=== PATIENT | male | born 1990 | race Caucasian/White ===

== ENCOUNTER 2017-10-19 08:11 | Emergency (ER) | payer SELFPAY ==
[2017-10-19] MEDS ORDERED: Fluorescein Opthalmic Strip ONE (09:46)
[2017-10-19] MEDS ORDERED: Proparacaine 0.5% Opth 15 ML BOT ONE (09:46)
== END 2017-10-19 11:04 | disposition home or self-care (01) ==
LOC: ERS 08:11
DX: H10.9 Unspecified conjunctivitis (principal); F41.9 Anxiety disorder, unspecified; Z87.891 Personal history of nicotine dependence
CPT/HCPCS: 99283

== ENCOUNTER 2019-03-06 10:19 | Emergency (ER) | payer SELFPAY ==
[2019-03-06 11:29] LABS: #Basophils 0.1 thou/uL (0.0-0.2); #Eosinphils 0.3 thou/uL (0.0-0.7); #Lymphocytes 1.5 thou/uL (1.20-3.40); #Monocytes 0.4 thou/uL (0.11-0.59); #Neutrophils 4.4 thou/uL (1.40-6.50); %Basophils 0.8 % (0.0-1.0); %Eosinophils 3.9 % (0.0-10.0); %Lymphocytes 22.4 % (21.0-51.0); %Monocytes 6.5 % (0.0-10.0); %Neutrophils 66.4 % (42.0-75.0); Hemoglobin 14.2 g/dL (14.0-18.0); Mean Corpuscular HGB CONC 32.3 g/dL (32.0-36.0); Mean Corpuscular Hemoglobin 29.5 pg (27.0-31.0); Mean Corpuscular Volume 91.2 fL (78.0-98.0); Mean Platelet Volume 8.5 fL (7.4-10.4); Platelet Count 228 thou/uL (130-400); RBC Distribution Width 13.3 % (11.5-14.5); Red Blood Cell (RBC) Count 4.83 mill/uL (4.70-6.10); White Blood Cell (WBC) Count 6.7 thou/uL (4.8-10.8)
[2019-03-06 11:49] LABS: ALT (SGPT) 27 U/L (8-55); AST (SGOT) 24 U/L (5-34); Albumin 4.3 g/dL (3.5-5.0); Alkaline Phosphatase 128 U/L (40-150); Anion Gap 9 mmol/L (10-20); BUN (Urea Nitrogen) 14 mg/dL (8.9-20.6); Bilirubin, Total 0.7 mg/dL (0.2-1.2); Calc. Creatinine Clearance 0 mL/min (70-130); Calcium 9.8 mg/dL (7.8-10.44); Carbon Dioxide 30 mmol/L (22-29); Chloride 107 mmol/L (98-107); Estimated GFR-MDRD Greater than 90; Globulin 2.8 g/dL (2.4-3.5); Glucose 88 mg/dL (70-105); Potassium 3.8 mmol/L (3.5-5.1); Protein, Total 7.1 g/dL (6.0-8.3); Sodium 142 mmol/L (136-145)
[2019-03-06 12:42] LABS: Troponin I Less than 0.010 ng/mL (< 0.028)
[2019-03-06 13:04] LABS: Bilirubin Negative (Negative); Blood, Urine Negative (Negative); Clarity CLEAR (Clear); Glucose, Urine (Dipstick) Negative (Negative); Leukocyte Negative (Negative); Nitrite Negative (Negative); Protein, Urine (Dipstick) 30 mg/dL (Neg-Trace); Specific Gravity, Urine 1.024 (1.002-1.036)
[2019-03-06 13:07] LABS: Bacteria/HPF None Seen HPF (None Seen); Hyaline Casts/LPF 0-3 HYALINE CAST LPF (0-3 Hyaline); RBC/HPF 0-3 HPF (0-3); Squamous Epithelial None Seen HPF (0-3); WBC/HPF 0-3 HPF (0-3)
[2019-03-06] MEDS ORDERED: Meclizine HCl 25 MG TAB ONE (14:29)
== END 2019-03-06 14:12 | disposition home or self-care (01) ==
LOC: ERS 10:19
DX: R42 Dizziness and giddiness (principal); F41.9 Anxiety disorder, unspecified; Z87.891 Personal history of nicotine dependence
CPT/HCPCS: 36415; 80053; 81003; 81015; 84484; 85025; 93005; J8499

== ENCOUNTER 2021-08-17 13:20 | Emergency (ER) | payer SELFPAY | END 2021-08-17 13:55 | disposition home or self-care (01) | LOC: ERS 13:20 | DX: Z02.79 Encounter for issue of other medical certificate (principal) | CPT/HCPCS: 99281 ==